=== PATIENT | female | born 1955 | race Hispanic/Latino ===

== ENCOUNTER 2019-04-25 17:16 | Emergency (ER) | payer OTHER ==
[~2019-04-25] VITALS: Ht 160 cm; Wt 68.0 kg
--- OUTSIDE RECORDS SUMMARY | 2019-04-25 17:18 | XMS REPORT ---
Author [facility] Address Unknown Phone Unavailable Care Team Providers Care Research/Program Director Name Role Phone Unavailable Unavailable Problems This patient has no known problems. Allergies, Adverse Reactions, Alerts This patient has no known allergies or adverse reactions. Medications This patient has no known medications. Encounters Start Date/Time End Date/Time Encounter Type Admission Type Attending [facility] Facility Care Department Encounter ID 2018-09-01 00:00:00 2018-09-01 00:00:00 Outpatient [facility] [id number] 2018-06-27 00:00:00 2018-06-27 00:00:00 Outpatient [facility] [id number] 2018-06-14 15:30:29 2018-06-14 15:30:29 Outpatient [facility] [id number] 2018-06-14 14:51:45 2018-06-14 14:51:45 Outpatient [facility] [id number] 2018-06-08 00:00:00 2018-06-08 00:00:00 Outpatient [facility] [id number] 2018-06-03 09:11:45 2018-06-03 09:11:45 Outpatient [facility] [id number] 2018-06-03 07:52:51 2018-06-03 07:52:51 Outpatient [facility] [id number] 2018-06-03 00:00:00 2018-06-03 00:00:00 Outpatient [facility] [id number] 2018-06-03 00:00:00 2018-06-03 00:00:00 Outpatient [facility] [id number] 2018-06-03 00:00:00 2018-06-03 00:00:00 Outpatient [facility] [id number] 2018-05-19 00:00:00 2018-05-19 00:00:00 Outpatient [facility] [id number] 2018-05-19 00:00:00 2018-05-19 00:00:00 Outpatient [facility] [id number] 2018-05-06 00:00:00 2018-05-06 00:00:00 Outpatient [facility] [id number] 2018-05-02 09:44:30 2018-05-02 09:44:30 Outpatient [facility] [id number] 2018-04-22 07:54:57 2018-04-22 07:54:57 Outpatient [facility] [id number] 2018-04-19 14:46:48 2018-04-19 14:46:48 Outpatient [facility] [id number] 2018-04-12 16:29:57 2018-04-12 16:29:57 Outpatient [facility] [id number] 2018-03-23 08:47:43 2018-03-23 08:47:43 Outpatient [facility] [id number] 2018-03-23 00:00:00 2018-03-23 00:00:00 Outpatient [facility] [id number] 2018-03-21 00:00:00 2018-03-21 00:00:00 Outpatient [facility] [id number] 2018-03-18 00:00:00 2018-03-18 00:00:00 Outpatient [facility] [id number] 2018-03-17 04:19:15 2018-03-17 04:19:15 Emergency [facility] [id number] 2018-03-17 01:42:04 2018-03-17 01:42:04 Emergency [facility] [id number] 2018-03-16 23:52:41 2018-03-16 23:52:41 Emergency [facility] [id number] 2018-03-10 07:12:08 2018-03-10 07:12:08 Outpatient [facility] [id number] 2018-03-04 08:30:47 2018-03-04 08:30:47 Outpatient [facility] [id number] 2018-02-25 00:00:00 2018-02-25 00:00:00 Outpatient [facility] [id number] 2018-02-24 00:00:00 2018-02-24 00:00:00 Outpatient [facility] [id number] 2018-02-09 10:11:15 2018-02-09 10:11:15 Outpatient [facility] [id number] 2018-02-09 08:14:34 2018-02-09 08:14:34 Outpatient [facility] [id number] 2018-02-02 06:25:44 2018-02-02 06:25:44 Outpatient [facility] [id number] 2018-02-01 00:00:00 2018-02-01 00:00:00 Outpatient [facility] [id number] 2018-01-17 00:00:00 2018-01-17 00:00:00 Outpatient [facility] [id number] 2018-01-11 12:50:51 2018-01-11 12:50:51 Outpatient [facility] [id number] 2018-01-04 07:02:13 2018-01-04 07:02:13 Outpatient [facility] [id number] 2017-12-30 15:39:36 2017-12-30 15:39:36 Outpatient [facility] [id number] 2017-12-30 13:55:00 2017-12-30 13:55:00 Outpatient [facility] [id number] 2017-12-21 00:00:00 2017-12-21 00:00:00 Outpatient [facility] [id number] 2017-12-21 00:00:00 2017-12-21 00:00:00 Outpatient [facility] [id number] 2017-12-06 00:00:00 2017-12-06 00:00:00 Outpatient [facility] [id number] 2017-12-03 00:00:00 2017-12-03 00:00:00 Outpatient [facility] [id number] 2017-11-17 00:00:00 2017-11-17 00:00:00 Outpatient [facility] [id number] 2017-11-03 00:00:00 2017-11-03 00:00:00 Outpatient [facility] [id number] 2017-10-29 07:17:42 2017-10-29 07:17:42 Outpatient [facility] [id number] 2017-10-20 09:19:55 2017-10-20 09:19:55 Outpatient [facility] [id number] 2017-10-14 11:27:56 2017-10-14 11:27:56 Outpatient [facility] [id number] 2017-10-11 12:43:09 2017-10-11 12:43:09 Outpatient [facility] [id number] 2017-09-21 14:30:01 2017-09-21 14:30:01 Outpatient [facility] [id number] 2017-08-30 15:06:58 2017-08-30 15:06:58 Outpatient [facility] [id number] 2017-08-30 14:30:40 2017-08-30 14:30:40 Outpatient [facility] [id number] 2017-08-10 16:45:56 2017-08-10 16:45:56 Outpatient [facility] [id number] 2017-08-10 15:30:25 2017-08-10 15:30:25 Outpatient [facility] [id number] 2017-08-03 14:20:20 2017-08-03 14:20:20 Outpatient [facility] [id number] 2017-08-03 13:22:22 2017-08-03 13:22:22 Outpatient [facility] [id number] 2017-07-07 23:53:08 2017-07-07 23:53:08 Emergency [facility] [id number] 2017-07-07 18:11:45 2017-07-07 18:11:45 Inpatient [facility] [id number] Results Test Description Test Time Test Comments Text Results Atomic Results Result Comments CT Abdomen and Pelvis w/o Contrast 2018-09-24 02:18:10 Patient: CULLEN JOHNSON Date/Time09/24/2018 01:55 CSTReason for ExamAbdominal painReportDictation location D4CT OF THE ABDOMEN AND PELVIS WITHOUT CONTRASTCLINICAL HISTORY:Abdominal painTECHNIQUE:5 mm contiguous axial images were obtained from the diaphragmatic dome through the symphysis pubis. No contrast was administered. Sagittal and coronal reformations were obtained and reviewed. An up to date CT recommended radiation dose reduction technique was utilized with total DLP of 433.8 mGy-cm.COMPARISON: Prior report dated 05/18/2012FINDINGS:Lung bases: ClearHepatobiliary: Fatty liver without obvious mass. No calcified stonesSpleen: NormalPancreas: NormalAdrenals: Left adrenal calcification without noduleKidneys: Absent left kidney. Unremarkable right kidney without stones or hydronephrosisGI: Dilated fluid-filled loops of small bowel with no clear transition. Radiopaque pills. No free fluid or free air. The abdominal wall is intact. A normal appendix is outlined.Retroperitoneum and pelvis: Scattered atherosclerotic changes of the aorta. No abnormal mass or adenopathy. The uterus appears surgically absent. No adnexal masses seen.Bones and soft tissues: IntactIMPRESSION:1. Dilated fluid-filled loops of small bowel with no clear transition suggests adynamic ileus.2. Fatty liver.3. Absent left kidney. Final Dictated by: MD Ling Phebe CDictated DT/TM: 09/24/2018 2:12 amSigned by: MD Ling Phebe CSigned (Electronic Signature): 09/24/2018 2:18 am
[2019-04-25] MEDS ORDERED: SODIUM CHLORIDE 0.9% 1000ML 1,000 ML IV STA (17:43)
[2019-04-25] MEDS ORDERED: ONDANSETRON HCL INJ 2MG/ML 2ML 2 MG/ML VIAL IV NR (18:00)
[2019-04-25] MEDS ORDERED: DICYCLOMINE HCL 20 MG/2 ML VIAL IM ONE (18:15)
[2019-04-25] MEDS ORDERED: DIATRIZOATE MEGL/DIATRIZOA SOD 30 ML BTL PO ONE (18:19)
[2019-04-25 18:32] LABS: BASOPHILS % 0.2 % (0.0-1.0); EOSINOPHILS # (AUTO) 0.1 (0.0-0.4); HEMATOCRIT 39.3 % (34.2-44.1); HEMOGLOBIN 13.1 g/dL (12.0-16.0); LYMPHOCYTES % 15.2 % (18.0-39.1); MEAN CORPUSCULAR HEMOGLOBIN 28.9 pg (28-32); MEAN CORPUSCULAR HGB CONC 33.3 g/dL (31-35); MEAN CORPUSCULAR VOLUME 86.6 fL (81-99); MONOCYTES # (AUTO) 0.7 (0.2-0.8); MONOCYTES % 5.5 % (4.4-11.3); NEUTROPHILS # (AUTO) 10.4 (2.1-6.9); NEUTROPHILS % 77.6 % (38.7-80.0); PLATELET COUNT 267 x10e3/uL (140-360); RED BLOOD COUNT 4.54 x10e6/uL (3.6-5.1); RED CELL DISTRIBUTION WIDTH 12.3 % (11.7-14.4)
[2019-04-25 18:57] LABS: ALANINE AMINOTRANSFERASE 26 IU/L (0-55); ALBUMIN 4.1 g/dL (3.5-5.0); ALBUMIN/GLOBULIN RATIO 1.1 (0.8-2.0); ALKALINE PHOSPHATASE 74 IU/L (40-150); AMYLASE 44 U/L (25-125); ANION GAP 14.3 mmol/L (8-16); BLOOD UREA NITROGEN 16 mg/dL (7-26); BUN/CREATININE RATIO 18 (6-25); CALCIUM 9.9 mg/dL (8.4-10.2); CARBON DIOXIDE 27 mmol/L (22-29); CHLORIDE 103 mmol/L (98-107); CREATINE KINASE 126 IU/L (29-168); CREATININE, SERUM 0.91 mg/dL (0.57-1.11); EST GLOMERULAR FILTRATION RATE > 60 ML/MIN (60-); GLUCOSE 190 mg/dL (74-118); LIPASE 34 U/L (8-78); POTASSIUM 4.3 mmol/L (3.5-5.1); SODIUM 140 mmol/L (136-145)
[2019-04-25] MEDS ORDERED: IOPAMIDOL 370 MG/ML 200 ML INFUS..BTL INJ ONE (19:37)
[2019-04-25] MEDS ORDERED: SODIUM CHLORIDE 0.9% 50ML 50 ML ONE (19:37)
--- NOTE | 2019-04-25 19:51 | Diagnostic Imaging Report ---
CT Abdomen And Pelvis with Intravenous Contrast INDICATION: Abdominal pain ^r/o diverticulitis TECHNIQUE: Thin collimation axial images obtained from the diaphragm to the level of the pubic symphysis following the uneventful administration of 100 cc of low osmolar, nonionic intravenous contrast. Dose reduction techniques used: Automated exposure control, adjustment of the mAs and/or kVp according to patient size, standardized low-dose protocol, and/or iterative reconstruction technique. RADIATION DOSE: Total DLP: 505.80 mGy*cm Estimated effective dose: (DLP x 0.015 x size factor) mSv CTDIvol has been reviewed. It is below the limits set by the Radiation Protocol Committee (RPC). COMPARISON: None. ABDOMEN FINDINGS: Lung Bases: Noncalcified nodule in the lingula measures 4 mm. Liver: Decreased attenuation consistent with steatosis. No evidence for mass. Gallbladder: Present and appears normal. No biliary ductal dilatation. Pancreas: Normal attenuation without mass or ductal dilatation. Spleen: Normal in size. No evidence of mass.. Adrenal Glands: Right adrenal gland is normal. Punctate calcification in the left adrenal gland. Kidneys: Right: Normal enhancement. Subcentimeter low attenuating lesion in the upper pole is suggestive of a cyst. No hydronephrosis. Left: Absent. No renal tissue elsewhere in the abdomen or pelvis. No surgical clips. Lymph Nodes: No lymphadenopathy. Aorta: Normal in diameter with diffuse calcifications PELVIS FINDINGS: Bowel: Stomach: Contains enteric contrast and is normal. Small Bowel: Mildly dilated loops of jejunum contain enteric contrast. No inspissated enteric contents. No clear transition point. Large Bowel: There are a few scattered diverticula without associated inflammation. Mild to moderate burden of stool throughout. No focal mural thickening or pericolonic inflammation. Appendix: Normal appendix. Bladder: Underdistended but otherwise normal. The uterus is absent. No adnexal mass. Peritoneum/retroperitoneum: No free fluid or fluid collection. Bones: No focal osseous lesions. Soft tissues: Unremarkable. IMPRESSION: 1. Diverticulosis coli. No CT evidence for diverticulitis. Normal appendix. 2. Mildly dilated small bowel loops are suggestive of ileus or very low-grade partial small bowel obstruction. 3. Solitary right kidney. 4. Steatosis. Signed by: Dr. Adria Angulo MD on 04/25/2019 7:48 PM
[2019-04-25 19:59] LABS: BILIRUBIN,URINE NEGATIVE (NEGATIVE); CLARITY,URINE CLEAR (CLEAR); COLOR,URINE YELLOW (YELLOW); KETONES,URINE NEGATIVE (NEGATIVE); LEUKOCYTE ESTERASE ,URINE MODERATE (NEGATIVE); NITRITE,URINE NEGATIVE (NEGATIVE); PROTEIN,URINE DIPSTICK NEGATIVE (NEGATIVE); URINE UROBILINOGEN 0.2 mg/dL (0.2 - 1)
[2019-04-25 20:10] LABS: BACTERIA,URINE FEW /HPF; EPITHELIAL CELLS,URINE FEW /LPF; RENAL EPITHELIAL CELLS,URINE RARE
[2019-04-25 21:09] VITALS: BP 150/81
== END 2019-04-25 21:12 | disposition home or self-care (01) ==
LOC: ER 17:16
DX: R10.12 Left upper quadrant pain (principal); R10.13 Epigastric pain; R11.2 Nausea with vomiting, unspecified; K56.609 Unspecified intestinal obstruction, unspecified as to partial versus complete obstruction; I10 Essential (primary) hypertension; E11.9 Type 2 diabetes mellitus without complications
CPT/HCPCS: 36415; 74177; 80053; 81001; 82150; 82550; 82553; 83690; 84484; 85025; 87086; 93005; 99284; J0500; J2405; J7030; Q9967

== ENCOUNTER → 2019-05-26 | Day surgery (SDC) | payer OTHER ==
[~2019-05-26] MED LIST: HYOSCYAMINE 0.125 MG TAB ONE; LANTUS SC; LIALDA1.2 GM PO; LIDOCAINE HCL 2% LOCAL INJ 5 ML SDV VIAL INJ ONE; LISINOPRIL2.5 MG PO; METFORMIN HCL500 MG PO; MIDAZOLAM HCL 2 MG/2 ML VIAL ONE; PIOGLITAZONE HC45 MG PO; PROPOFOL IV EMULSION 10 MG/ML 50 ML VIAL ONE; SIMVASTATIN20 MG PO; VASCEPA PO
[2019-05-26 11:45] VITALS: BP 132/70
--- NOTE | 2019-05-26 13:16 | Operative Report ---
DATE OF PROCEDURE: 05/26/2019 SURGEON: Sam Mccauley MD PROCEDURE: Esophagogastroduodenoscopy with biopsies and colonoscopy with polypectomy and biopsies. INDICATIONS FOR EGD: Acid reflux. INDICATIONS FOR COLONOSCOPY: Diarrhea. MEDICATIONS: The patient was done under MAC, please see anesthesiologist's note. PROCEDURE IN DETAIL: With the patient in left lateral decubitus position, flexible fiberoptic Olympus gastroscope was introduced into the esophagus under direct visualization without any difficulty. There was some patchy erythema noted in distal esophagus. The scope was then advanced with ease into the stomach and mucosa overlying the antrum and the body revealed some patchy erythema and [id number] edema and biopsies were obtained and sent to stain for H pylori. The pylorus was of normal contour and shape, it was intubated with ease and the scope was advanced all the way to the second portion of the duodenum. Biopsies were obtained from the second portion as well as the duodenal bulb to rule out sprue. A minute umbilicated nodule was noted in the duodenal bulb and that was biopsied. The scope was then withdrawn back into the stomach and retroflexed and mucosa overlying the fundus and the cardia appeared to be within normal limits. The scope was then straightened out, it was subsequently withdrawn. The patient tolerated procedure well. IMPRESSION: 1. Distal esophagitis, mild. 2. Gastritis, biopsied, biopsies sent to stain for H pylori. 3. Umbilicated nodule, duodenal bulb, biopsied. 4. Rule out sprue. PLAN: Follow up histology. Initiate Protonix 40 mg one p.o. q.a.m. a.c. PROCEDURE IN DETAIL: The patient was then turned around and after adequate lubrication of the anal canal, the flexible fiberoptic Olympus colonoscope was inserted into the rectum with ease and advanced all the way to the cecum. Mucosa overlying the cecum appeared to be within normal limits. The ileocecal valve was intubated and the scope was advanced into the terminal ileum. Biopsies were obtained. The scope was then withdrawn back into the colon. It was then withdrawn slowly and mucosa overlying the ascending and the transverse grossly appeared to be within normal limits. There were some mild inflammatory changes noted in the distal transverse colon as well as the descending, sigmoid, and rectum and multiple random biopsies were obtained. Diverticular disease was noted to involve the distal descending and the sigmoid colon. Two minute polyps were hot biopsied from the sigmoid colon. The scope was then retroflexed into the distal rectum and small internal hemorrhoids were noted, none of which was actively bleeding. The scope was then straightened out, it was subsequently withdrawn after securing an adequate stool specimen that was sent for the appropriate stool studies. The patient tolerated procedure well. IMPRESSION: 1. Mild patchy left-sided colitis. 2. Diverticulosis. 3. Sigmoid colon polyps x2, hot biopsied. 4. Proctitis, mild. 5. Internal hemorrhoids, none actively bleeding. PLAN: Follow up histology. Follow up stool studies. Check CRP, sedimentation rate and IBD panel. The patient might benefit from a followup colonoscopy in 5 years. Sam Mccauley MD [facility] [place] /[id number] cc: Genny Benjamin MD
[2019-05-26 13:54] LABS: WBC,FECAL (FECAL LACTOFERRIN) NEGATIVE (NEGATIVE)
[2019-05-27 13:08] LABS: C DIFFICILE TOXIN A&B AMP PROB **POSITIVE** (NEGATIVE)
== END | disposition home or self-care (01) ==
LOC: OR 07:01
PROVIDERS: ATTEND Internal Medicine Gastroenterology
DX: K21.9 Gastro-esophageal reflux disease without esophagitis (principal); K20.9 Esophagitis, unspecified; K29.70 Gastritis, unspecified, without bleeding; K51.50 Left sided colitis without complications; K57.30 Diverticulosis of large intestine without perforation or abscess without bleeding; K62.89 Other specified diseases of anus and rectum; K63.5 Polyp of colon; K64.8 Other hemorrhoids; Z87.898 Personal history of other specified conditions; R10.10 Upper abdominal pain, unspecified; R11.0 Nausea; R12 Heartburn; R19.7 Diarrhea, unspecified; R10.30 Lower abdominal pain, unspecified; I10 Essential (primary) hypertension; Z68.28 Body mass index [BMI] 28.0-28.9, adult; E11.9 Type 2 diabetes mellitus without complications; E78.00 Pure hypercholesterolemia, unspecified
CPT/HCPCS: 36415; 43239; 45380; 45384; 82948; 83630; 83993; 85651; 86140; 86256; 86671; 87045; 87177; 87328; 87493; J2001; J2250

== ENCOUNTER → 2021-10-27 | Outpatient (CLI) | payer BC ==
[~2021-10-27] MED LIST changes: -HYOSCYAMINE 0.125 MG TAB ONE; -LIDOCAINE HCL 2% LOCAL INJ 5 ML SDV VIAL INJ ONE; -MIDAZOLAM HCL 2 MG/2 ML VIAL ONE; -PROPOFOL IV EMULSION 10 MG/ML 50 ML VIAL ONE
[2021-10-27 15:22] LABS: CREATININE, SERUM 0.88 mg/dL (0.57-1.11)
== END ==
LOC: CT 14:36
PROVIDERS: ATTEND Internal Medicine Gastroenterology
DX: R10.30 Lower abdominal pain, unspecified (principal)
CPT/HCPCS: 36415; 74177; 82565; 84520